=== PATIENT | female | born 1980 | race Caucasian/White ===

== ENCOUNTER 2020-06-10 20:10 | Emergency (ER) | payer BC ==
[~2020-06-10 20:10] MED LIST: CALCITRATE200 MG PO; ELIQUIS 5 MG TAB5 MG PO; ELIQUIS5 MG PO; KEFLEX500 MG PO; NORCO 5-325 TA1 EACH PO; SERTRALINE HCL50 MG PO; VITAMIN B12-FO1 EACH PO; VITAMIN D3125 MCG PO; VITAMIN E100 UNI1 PO; WOMEN'S DAILY1 EACH PO
[2020-06-10 20:42] LABS: HEMOGLOBIN 12.9 gm/dl (12.3-15.3); RED BLOOD COUNT 4.26 M/UL (4.00-5.10); WHITE BLOOD COUNT 7.5 K/UL (4.5-11.0)
[2020-06-10 21:00] LABS: BUN/CREATININE RATIO 24 (0-10)
[2020-06-11] MEDS ORDERED: ZOFRAN 4 MG TAB4 MG PO (00:27)
[2020-06-11] MEDS ORDERED: MACRODANTIN100 MG PO (00:27)
== END 2020-06-11 01:02 | disposition home or self-care (01) ==
LOC: ER1 20:10
PROVIDERS: Emergency Medicine
DX: R55 Syncope and collapse (principal); N39.0 Urinary tract infection, site not specified; R29.700 NIHSS score 0; Z86.16 Personal history of COVID-19; Z86.711 Personal history of pulmonary embolism; Z88.8 Allergy status to other drugs, medicaments and biological substances
CPT/HCPCS: 70450; 71045; 80053; 81001; 82550; 82553; 83874; 84484; 84703; 85025; 85379; 99285; Q9967